=== PATIENT | female | born 1975 | race Caucasian/White ===

== ENCOUNTER 2017-01-22 17:50 | Emergency (ER) | payer BC ==
[~2017-01-22] VITALS: Ht 167.6 cm; Wt 88.5 kg
[2017-01-22 18:21] VITALS: BP_SYST 154
--- NOTE | 2017-01-22 18:56 | NUR ---
Patient to ER bed 7 to gown for evaluation. Side rails up. Report given to Jade BURNETT.
--- NOTE | 2017-01-22 19:05 | NUR ---
Patient brought in with ambulating to bed. Patient reports that she started to have vaginal spotting starting 8 days ago like her regular menstrual period. This morning woke up in a "pool of blood" with clots, Patient reports that she has changed her tampon 3 times today but the blood has been decreasing. Reports cramp like pain of 2/10.
--- NOTE | 2017-01-22 19:10 | NUR ---
BRYCE Alonzo at bedside examining patient.
[2017-01-22] MEDS ORDERED: NACL 0.9% 1,000 ML IV ONE (19:15)
[2017-01-22] MEDS ORDERED: MORPHINE 4 MG/ML INJ. SYRINGE IVP ONE (19:15)
[2017-01-22] MEDS ORDERED: DIPHENHYDRAMINE INJ 50 MG/ML VIAL IVP ONE (19:15)
[2017-01-22 19:16] LABS: BILIRUBIN,URINE NEGATIVE (NEGATIVE); BLOOD, URINE NEGATIVE (NEGATIVE); CLARITY/URINE CLEAR (CLEAR); COLOR,URINE YELLOW (YELLOW); GLUCOSE,URINE NEGATIVE (NEGATIVE); KETONES,URINE TRACE (NEGATIVE); LEUKOCYTE ESTERASE ,URINE NEGATIVE (NEGATIVE); NITRITE, URINE NEGATIVE (NEGATIVE); PROTEIN URINE NEGATIVE (NEGATIVE); UROBILINOGEN,URINE 0.2 (0.2-1.0)
[2017-01-22 19:35] LABS: BASOPHILS % (AUTO) 0.3 % (0.0-2.0); EOSINOPHILS # (AUTO) 0.2 K/uL (0.0-0.4); EOSINOPHILS % (AUTO) 1.8 % (0.0-4.0); HEMATOCRIT 35.2 % (36-48); HEMOGLOBIN 11.5 g/dL (12.0-16.0); LYMPHOCYTES % (AUTO) 28.5 % (20.5-51.5); MEAN CORPUSCULAR HEMOGLOBIN 25 pg (27-31); MEAN CORPUSCULAR HGB CONC 33 % (32-36); MEAN CORPUSCULAR VOLUME 75 fL (79.0-98.0); MONOCYTES # (AUTO) 0.7 K/uL (0.0-1.0); MONOCYTES % (AUTO) 6.2 % (1.7-9.3); NEUTROPHILS # (AUTO) 6.8 K/uL (1.8-7.7); NEUTROPHILS % (AUTO) 63.2 % (40.0-70.0); PLATELET COUNT (AUTO) 355 K/uL (130-430); RED BLOOD CELL COUNT(AUTO) 4.68 MIL/uL (4.2-6.2); RED CELL DISTRIBUTION WIDTH 15.7 % (9.0-15.0); WHITE BLOOD COUNT (AUTO) 10.7 K/uL (4.8-10.8)
[2017-01-22 20:01] LABS: CALCIUM 9.1 mg/dL (8.4-11.0); CREATININE 0.57 mg/dL (0.55-1.30); POTASSIUM 3.5 mmol/L (3.5-5.1)
[2017-01-22 20:05] LABS: ALBUMIN 3.5 g/dL (3.4-4.8); TOTAL BILIRUBIN 0.2 mg/dL (0.0-1.0)
[2017-01-22 20:34] VITALS: BP_SYST 136
--- NOTE | 2017-01-22 20:34 | NUR ---
Patient given written and verbal discharge instructions and verbalizes understanding. ER MD discussed with patient the results and treatment provided. Patient in stable condition. ID arm band removed. IV catheter removed intact and dressing applied, no active bleeding. Rx of Tramadol Hydrochloride, Docusate Sodium, Motrin, and Provera given. Patient educated on pain management and to follow up with PMD in 2-3 days. Pain Scale 0/10 Opportunity for questions provided and answered.
== END 2017-01-22 20:34 | disposition home or self-care (01) ==
LOC: SED 17:50
DX: N93.8 Other specified abnormal uterine and vaginal bleeding (principal); N88.8 Other specified noninflammatory disorders of cervix uteri; D64.9 Anemia, unspecified; Z98.51 Tubal ligation status
CPT/HCPCS: 36415; 76830; 76857; 80053; 81003; 81025; 85025; 96361; 96374; 96375; 99285; J1200; J2270; J7030

== ENCOUNTER 2018-06-21 09:12 | Inpatient (IN) | payer BC ==
[~2018-06-21] VITALS: Ht 170.2 cm; Wt 89.4 kg
--- NOTE | 2018-06-21 09:17 | NUR ---
Patient to ER bed 08 to gown for evaluation. Side rails up.
--- NOTE | 2018-06-21 09:20 | NUR ---
Patient presented to the ER with abdominal pain. Patient ambulatory, A&O x4, afebrile, respirations equal bilat. Patient states she woke up at 1am this morning with abdominal pain, she thought she need to use the restroom then went back to bed. Patient said when she woke up at 6am she still had abdominal pain so she went to [facility] in [place]. The Urgent Care referred the patient to the ER. Patient states she has abdominal pain radiaing to her back 11/06. Patient states she is on her menstrual cycle today.
--- NOTE | 2018-06-21 09:25 | NUR ---
ER at bedside examining patient.
[2018-06-21 09:26] VITALS: BP_SYST 138; BP_SYST 150
[2018-06-21] MEDS ORDERED: MORPHINE 4 MG/ML INJ. SYRINGE IVP ONE (09:30)
[2018-06-21] MEDS ORDERED: NACL 0.9% 1,000 ML IV ONE (09:30)
[2018-06-21] MEDS ORDERED: ONDANSETRON HCL 4 MG/2 ML VIAL IVP ONE ×2 (09:30→18:50)
--- NOTE | 2018-06-21 09:40 | NUR ---
# 20 gauge angiocath placed to right AC. Use of asceptic technique. Opsite placed over site. Blood return noted. Blood for lab drawn from site. Flushed with 10 cc of normal saline. No evidence of infiltration noted. Patient tolerated well.
[2018-06-21 10:21] LABS: HEMATOCRIT 37.8 % (36-48); HEMOGLOBIN 12.2 g/dL (12.0-16.0); MEAN CORPUSCULAR HEMOGLOBIN 24 pg (27-31); MEAN CORPUSCULAR HGB CONC 32 % (32-36); MEAN CORPUSCULAR VOLUME 76 fL (79.0-98.0); PLATELET COUNT (AUTO) 290 K/uL (130-430); RED CELL DISTRIBUTION WIDTH 16.9 % (9.0-15.0)
[2018-06-21 10:22] LABS: BASOPHILS % (AUTO) 0.1 % (0.0-2.0); EOSINOPHILS % (AUTO) 0.2 % (0.0-4.0); LYMPHOCYTES # (AUTO) 1.5 K/uL (1.0-5.5); LYMPHOCYTES % (AUTO) 16.3 % (20.5-51.5); MONOCYTES # (AUTO) 0.4 K/uL (0.0-1.0); MONOCYTES % (AUTO) 4.4 % (1.7-9.3); NEUTROPHILS # (AUTO) 7.1 K/uL (1.8-7.7)
[2018-06-21 10:25] LABS: CALCIUM 8.4 mg/dL (8.4-11.0); CREATININE 0.69 mg/dL (0.55-1.30); POTASSIUM 3.5 mmol/L (3.5-5.1)
[2018-06-21 10:30] LABS: ALBUMIN 3.4 g/dL (3.4-4.8); TOTAL BILIRUBIN 0.3 mg/dL (0.0-1.0)
[2018-06-21 10:34] LABS: INR 0.9 (0.8-1.2); PROTHROMBIN TIME 9.7 SECS (9.5-12.5)
[2018-06-21 11:04] LABS: BILIRUBIN,URINE NEGATIVE (NEGATIVE); BLOOD, URINE 1+ (NEGATIVE); CLARITY/URINE CLEAR (CLEAR); COLOR,URINE YELLOW (YELLOW); GLUCOSE,URINE NEGATIVE (NEGATIVE); KETONES,URINE NEGATIVE (NEGATIVE); LEUKOCYTE ESTERASE ,URINE NEGATIVE (NEGATIVE); NITRITE, URINE POSITIVE (NEGATIVE); PROTEIN URINE NEGATIVE (NEGATIVE); UROBILINOGEN,URINE 0.2 (0.2-1.0)
[2018-06-21 11:30] LABS: BACTERIA,URINE MANY /HPF (None Seen); WBC,URINE 0-3 /HPF (0-3); YEAST,URINE None Seen /HPF (None Seen)
[2018-06-21 11:31] LABS: MUCUS,URINE None Seen /LPF (None Seen)
--- NOTE | 2018-06-21 11:46 | NUR ---
patient to CT via rney and radiology staff.
--- NOTE | 2018-06-21 11:53 | NUR ---
Patient arrived from to bed 8 via gurney & radiology staff.
--- NOTE | 2018-06-21 12:23 | NUR ---
Dr. Page at bedside to discuss labs with patient
--- NOTE | 2018-06-21 12:31 | NUR ---
DR ESCALANTE WAS PAGED AT THIS TIME
[2018-06-21] MEDS ORDERED: D5NS 1,000 ML IV SCH (12:44)
[2018-06-21] MEDS ORDERED: MORPHINE 4 MG/ML INJ. SYRINGE IVP PRN ×2 (12:45→19:15)
[2018-06-21] MEDS ORDERED: PIPERACILLIN/TAZO 3.375 GM in NS 50 ML IV ONE (12:45)
[2018-06-21] MEDS ORDERED: PIPERACILLIN/TAZOBACTAM 3.375 GM/VIAL (ZOSYN) IV ONE (12:56)
--- NOTE | 2018-06-21 13:27 | NUR ---
Patient will be admitted to care of Dr. Dominguez. Admitted to med/surg unit. Will go to room 116-B. Belongings list completed. Summary report printed. Report will be given at bedside. Dr. Tanner will be in approx 1500 for surgery. Transfer to [facility]. IV present no sign or symptom of infiltration.
--- NOTE | 2018-06-21 13:37 | NUR ---
ADMISSION: The patient, KARELY HARPER, 42 y/o, F admitted by KERRI ROBLES DO, was given written information regarding hospital policies, unit procedures and contact persons.
--- NOTE | 2018-06-21 13:40 | NUR ---
admission notes rec patient from er with a dx of acute appendicitis. awake alert with hob elevated.denies pain at this time. accompanied by family at bedside.npo maintained at this time for sx tonight.
--- NOTE | 2018-06-21 13:45 | NUR ---
Summary report printed. Report will be given at bedside To Marie Heath RN in [id number].
[2018-06-21 13:49] VITALS: BP_SYST 135
[2018-06-21] MEDS ORDERED: ONDANSETRON HCL 4 MG/2 ML VIAL IVP PRN ×2 (15:15→19:15)
[2018-06-21] MEDS ORDERED: KETOROLAC TROMETHAMINE 30 MG VIAL IVP PRN (15:15)
[2018-06-21] MEDS ORDERED: fentaNYL CITRATE/PF 100 MCG/2 ML AMP IVP PRN ×2 (15:15)
--- NOTE | 2018-06-21 15:40 | NUR ---
rounds dr lei called and spoke with patient re the sx. pt signed consent for sx and it will be at 1800. pre op teaching done at bedside .
[2018-06-21 16:05] VITALS: BP_SYST 128
--- NOTE | 2018-06-21 18:34 | NUR ---
closing notes pt was picked for sx via bed. family in the room with patient. no sob noted.
[2018-06-21] MEDS ORDERED: NS IRRIG SOLN 1000 ML IR ONE (18:50)
[2018-06-21] MEDS ORDERED: NS 1000 ML IV.SOLN IV ONE (18:50)
[2018-06-21] MEDS ORDERED: MIDAZOLAM HCL 5 MG/5 ML VIAL IVP ONE (18:50)
[2018-06-21] MEDS ORDERED: KETOROLAC TROMETHAMINE 30 MG VIAL IVP ONE (18:50)
[2018-06-21] MEDS ORDERED: PROPOFOL 200MG/ 20ML VIAL (DIPRIVAN) IV ONE (18:50)
[2018-06-21] MEDS ORDERED: LR 1,000 ML IV.SOLN IV ONE (18:50)
[2018-06-21] MEDS ORDERED: fentaNYL CITRATE/PF 100 MCG/2 ML AMP IVP ONE (18:50)
[2018-06-21] MEDS ORDERED: BUPIVACAINE /PF 0.5% 30 ML VIAL INJ ONE (18:50)
[2018-06-21] MEDS ORDERED: ROCURONIUM BROMIDE 10 MG/ML (ZEMURON) IV ONE (18:50)
[2018-06-21] MEDS ORDERED: LIDOCAINE 2%, 20 ML MDV INJ ONE (18:50)
[2018-06-21] MEDS ORDERED: SEVOFLURANE 15 MIN GAS INH ONE (18:50)
[2018-06-21] MEDS ORDERED: ACETAMINOPHEN 500 MG TABLET PO PRN (19:15)
[2018-06-21 20:55] VITALS: BP_SYST 134
--- NOTE | 2018-06-21 20:55 | NUR ---
NOTES RECEIVED PATIENT FROM OR, S/P LAP APPY, AWAKE, ALERT, ORIENTED, NOT IN DISTRESS, VITALS STABLE. CLAIMED TO HAVE ABDOMINAL DISCOMFORT AT THIS TIME. ASSESSMENT DONE AND DOCUMENTED. SEE FLOWSHEET. NEEDS ATTENDED TO. SAFETY AND FALL PRECAUTION MEASURES IN PLACED. BED IN LOW AND LOCKED POSITION. CALL LIGHT PLACED WITHIN REACH.
[2018-06-21] MEDS: PIPERACILLIN/TAZO 3.375/DEX-IS 50 ML IV SCH (23:09)
[2018-06-21] MEDS: D5LR 1,000 ML IV SCH (23:14)
--- NOTE | 2018-06-21 23:24 | NUR ---
MEDICATION DUE MEDICATION GIVEN SCHEDULED, TOLERATED WELL. WILL CONTINUE TO MONITOR.
--- NOTE | 2018-06-22 02:13 | NUR ---
ROUNDS PATIENT ASLEEP, RESPIRATIONS EVEN AND UNLABORED, NO SIGNS OF ANY PAIN AND DISCOMFORT NOTED. WILL CONTINUE TO MONITOR.
--- NOTE | 2018-06-22 04:15 | NUR ---
ROUNDS PATIENT AWAKE, VITALS STABLE, DENIES PAIN AT THIS TIME. ASSISTED PATIENT TO THE BATHROOM. NEEDS ATTENDED TO. CALL LIGHT PLACED WITHIN REACH.
[2018-06-22] MEDS: PIPERACILLIN/TAZO 3.375/DEX-IS 50 ML IV SCH (05:12)
--- NOTE | 2018-06-22 06:15 | NUR ---
CLOSING NOTES PATIENT RESTING COMFORTABLY IN BED, VITALS STABLE, DENIES ANY PAIN AT THIS TIME. PATIENT SEEN BY DR. ROBLES WHO IS MAKING ROUNDS AT THIS TIME. ALL NEEDS ATTENDED TO. SAFETY AND FALL PRECAUTION MEASURES MAINTAINED. CALL LIGHT PLACED WITHIN REACH.
--- NOTE | 2018-06-22 07:11 | NUR ---
OPENING NOTE: MORNING REPORT WAS TAKEN FROM APPLE TURNER NURSE AT BEDSIDE. PATIENT IS AWAKE WITH NO SIGNS OF DISTRESS. PATIENT ON ROOM AIR NOT COMPLAINING OF SHORTNESS OF BREATH. IV FLUIDS ARE INFUSING. PATIENT NOT COMPLAINING OF PAIN AT MOMENT. BED ALARM IS ON AND CALL LIGHT IS IN REACH. BED IN LOWEST POSITION WITH SIDE RAILS UP. WILL CONTINUE TO MONITOR.
[2018-06-22 08:35] VITALS: BP_SYST 130
[2018-06-22] MEDS: D5LR 1,000 ML IV SCH ×2 (08:36→18:06)
[2018-06-22] MEDS: cefTRIAXone 1 GM in D5W 50 ML IV SCH (08:38)
--- NOTE | 2018-06-22 10:46 | NUR ---
MD: CALLED DR MORALES BECAUSE PATIENT COMPLAINING OF MODERATE PAIN. ORDERED NORCO 5-325MG PO Q6H PRN.
[2018-06-22] MEDS: HYDROcodone/ACETAMIN 5-325 MG TAB (NORCO/ VICODIN) PO PRN ×2 (11:03→22:02)
--- NOTE | 2018-06-22 11:06 | NUR ---
NOTE: PATIENT COMPLAINING OF MODERATE DISCOMFORT IN ABD. GAVE PATIENT PAIN MEDICATION. EDUCATED ON SIDE EFFECTS. FAMILY AT BEDSIDE. PATIENT HAS NO FURTHER REQUESTS. WILL CONTINUE TO MONITOR.
--- NOTE | 2018-06-22 11:38 | NUR ---
: DR ESCALANTE CALLED TO SEE HOW PATIENT WAS DOING. SAID FOR PATIENT TO FOLLOW UP WITH HIM NEXT WEEK. SAID PATIENT CAN SHOWER AND LEAVE INCISIONS OPEN TO AIR.
[2018-06-22 12:26] VITALS: BP_SYST 114
--- NOTE | 2018-06-22 13:43 | NUR ---
NOTE: PATIENT LAYING IN BED WITH NO SIGNS OF DISTRESS. CALL LIGHT IS IN REACH. WILL CONTINUE TO MONITOR.
--- NOTE | 2018-06-22 15:57 | NUR ---
NOTE: PATIENT LAYING IN BED WITH NO SIGNS OF DISTRESS. FLUIDS ARE INFUSING. PATIENT HAS NO FURTHER REQUESTS AT MOMENT. CALL LIGHT IS IN REACH. WILL CONTINUE TO MONITOR.
[2018-06-22 16:31] VITALS: BP_SYST 104
--- NOTE | 2018-06-22 18:10 | NUR ---
CLOSING NOTE: PATIENT SITTING IN BED TALKING TO VISITOR AT BEDSIDE WITH NO SIGNS OF DISTRESS. PATIENT ON ROOM AIR NOT COMPLAINING OF SHORTNESS OF BREATH. IV FLUIDS INFUSING. BED ALARM IS ON AND CALL LIGHT IS IN REACH. BED IN LOWEST POSITION WITH SIDE RAILS UP. WILL CONTINUE TO MONITOR AND GIVE REPORT TO STRATEGY PLANNING CONSULTANT NURSE. Addendum: 06/22/18 at 1829 by Lorena Mcdowell RN PATIENT NOT COMPLAINING OF NAUSEA FROM DINNER. WILL ADVANCE DIET TO REGULAR FOR BREAKFAST TOMORROW. PATIENT NOT COMPLAINING OF PAIN. TOLD PATIENT TO TELL ME WHEN SHE NEEDS SOMETHING.
--- NOTE | 2018-06-22 19:35 | NUR ---
ROUNDS PATIENT IN BED, WATCHING TV, VITALS STABLE. DENIES ANY PAIN AND DISCOMFORT AT THIS TIME. ASSESSMENT DONE AND DOCUMENTED. SEE FLOWSHEET. NEEDS ATTENDED TO. SAFETY AND FALL PRECAUTION MEASURES IN PLACED. BED IN LOW AND LOCKED POSITION. CALL LIGHT PLACED WITHIN REACH.
[2018-06-22 20:00] VITALS: BP_SYST 123
[2018-06-23] VITALS: BP_SYST 115
--- NOTE | 2018-06-23 00:10 | NUR ---
PATIENT RESTING: Patient resting quietly. No acute distress noted. Vital signs within normal range.
[2018-06-23] MEDS: D5LR 1,000 ML IV SCH (01:45)
--- NOTE | 2018-06-23 02:14 | NUR ---
ROUNDS PATIENT ASLEEP, NOT IN DISTRESS, VITALS STABLE. WILL CONTINUE TO MONITOR.
--- NOTE | 2018-06-23 04:13 | NUR ---
PATIENT RESTING: Patient resting quietly. No acute distress noted. Vital signs within normal range.
--- NOTE | 2018-06-23 06:05 | NUR ---
CLOSING NOTES PATIENT AWAKE, VITALS STABLE, DENIES ANY PAIN AND DISCOMFORT AT THIS TIME. ALL NEEDS ATTENDED TO. SAFETY MEASURES MAINTAINED. CALL LIGHT PLACED WITHIN REACH.
--- NOTE | 2018-06-23 07:30 | NUR ---
OPENING NOTE: MORNING REPORT WAS TAKEN FROM LEAD INGOT MOLDER NURSE AT BEDSIDE. PATIENT IS AWAKE WITH NO SIGNS OF DISTRESS. PATIENT ON ROOM AIR NOT COMPLAINING OF SHORTNESS OF BREATH. IV FLUIDS ARE INFUSING. PATIENT NOT COMPLAINING OF PAIN AT MOMENT. EDUCATED PATIENT ON IMPORTANCE OF BED ALARM BUT REFUSED TO HAVE IT ON. CALL LIGHT IS IN REACH. BED IN LOWEST POSITION WITH SIDE RAILS UP. WILL CONTINUE TO MONITOR.
[2018-06-23 08:40] VITALS: BP_SYST 129
[2018-06-23] MEDS: cefTRIAXone 1 GM in D5W 50 ML IV SCH (08:44)
[2018-06-23 10:32] VITALS: BP_SYST 129
--- NOTE | 2018-06-23 11:45 | NUR ---
D/C Patient Patient given medication reconciliation form and D/C instructions. Exit Care provided. Patient verbalized understanding. MD discussed with patient the results and treatment provided. Ambulatory with steady gait for discharge to home. Patient in stable condition, ID band removed. IV catheter removed, intact and dressing applied, no active bleeding. Rx of NORCO given. Patient educated on pain management. All belongings sent with patient. Patient wheeled out to front by me.
[2018-06-23 12:06] VITALS: BP_SYST 142
== END 2018-06-23 11:45 | disposition home or self-care (01) | DRG 342 ==
LOC: SED 09:12 → SMU 12:44
PROVIDERS: ADMIT General Practice; ATTEND General Practice
PROC: 0DTJ4ZZ Resection of Appendix, Percutaneous Endoscopic Approach (ICD-10-PCS; principal; 2018-06-21 15:00)
DX: K35.80 Unspecified acute appendicitis (principal); N39.0 Urinary tract infection, site not specified; E66.9 Obesity, unspecified; Z68.30 Body mass index [BMI] 30.0-30.9, adult; Z98.51 Tubal ligation status
CPT/HCPCS: 36415; 80053; 81000-TC; 82150-TC; 83605; 83690-TC; 85025; 85610-TC; 86886; 86900; 86901; 87040-TC; 87070-TC; 87075-TC; 87081; 87086; 88304; 96361; 96374; 96375; 99285; C1727; J0696; J1885; J2001; J2250; J2270; J2405; J2543; J2704; J3010; J3490; J7030; J7060; J7120